=== PATIENT | male | born 1975 | race Caucasian/White ===

== ENCOUNTER 2019-02-23 11:07 | Emergency (ER) | payer BC ==
[2019-02-23] MEDS: TETRACAINE 0.5% 4 ML OPH LEFT EYE (11:47)
[2019-02-23] MEDS: FLUORESCEIN STRIP LEFT EYE (11:47)
[2019-02-23] MEDS: OXYCODONE/ACETAMINOPHEN (5/325) TAB PO (12:55)
[2019-02-23] MEDS: ERYTHROMYCIN 1 GM OPH OINT LEFT EYE (12:55)
== END 2019-02-23 13:14 | disposition home or self-care (01) ==
LOC: FTE 11:07
DX: S05.02XA Injury of conjunctiva and corneal abrasion without foreign body, left eye, initial encounter (principal); F17.210 Nicotine dependence, cigarettes, uncomplicated; X58.XXXA Exposure to other specified factors, initial encounter; Y92.9 Unspecified place or not applicable
CPT/HCPCS: 99283; Z7502